=== PATIENT | male | born 1975 | race American Indian/Alaskan Native ===

== ENCOUNTER 2017-09-08 07:20 | Emergency (ER) | payer OTHER ==
[2017-09-08] MEDS ORDERED: MOTRIN PO ONE (09:16)
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
[2017-09-08 11:15] VITALS: BP 140/76
== END 2017-09-08 11:14 | disposition home or self-care (01) ==
LOC: ED 07:20
DX: S62.525A Nondisplaced fracture of distal phalanx of left thumb, initial encounter for closed fracture (principal); S20.211A Contusion of right front wall of thorax, initial encounter; V87.7XXA Person injured in collision between other specified motor vehicles (traffic), initial encounter; Y93.89 Activity, other specified; Y99.8 Other external cause status; Y92.410 Unspecified street and highway as the place of occurrence of the external cause